=== PATIENT | female | born 1970 | race Caucasian/White ===

== ENCOUNTER → 2020-03-20 | Day surgery (SDC) | payer BC ==
[~2020-03-20] VITALS: Ht 152.4 cm; Wt 49.9 kg
[2020-03-20] VITALS (14 sets, daily range): BP systolic 111–139; BP diastolic 55–78
[~2020-03-20] MED LIST: Acetaminophen (Non formulary) 100 ML IV ONE; Atropine Sulfate 0.4mg/ml inj IVP PRN; BUTALB-ACETAMI1 EAC1 PO; D5 1/2NS 1,000 ML IV SCH; DiphenhydrAMINE 50mg/ml Inj IVP PRN; FROVA2.5 MG PO; Glycopyrrolate 0.2mg/ml 1ml Vial ONE; HYDROcodone/Acetamin 5/325 tab ORAL PRN; HYDROcodone/Acetamin 7.5/325 tab ORAL PRN; HYDROmorphone 1mg/ml Carpuject SUBQ PRN; Hydromorphone 0.5mg/0.5ml inj IVP PRN; Ketorolac 30mg Inj IV PRN; Ketorolac 30mg Inj ONE; LORazepam Inj 2mg/ml 1ml IV PRN; LR 1000ml 1,000 ML IVLG SCH; LR 1000ml ONE; Labetalol 5mg/ml 20ml vial IV PRN; Lidocaine 1% 10mg/ml/Epi 0.005mg/ml 30ml vial INJ ONE; Lidocaine 1% MPF 10mg/ml 5ml ONE; Lidocaine 1% Plain 30 ml INJ ONE; Meperidine 25mg/1ml Inj (FOR RIGORS ONLY) IV PRN; Metoclopramide 10mg/2ml Inj IVP PRN; Midazolam 2mg/2ml Inj IVP PRN; NS Irrig 4000ml IRRIG ONE; Neostigmine 1mg/ml 10ml Inj ONE; Rocuronium Bromide 50mg/5ml Inj IV ONE; Sodium Chloride 10ml vial INJ ONE; Sterile Water Irrig 1000ml IRRIG ONE; TROKENDI XR200 MG PO; Tylenol #3 tab (300mg/30mg) ORAL PRN; fentaNYL 100 mcg/2 mL IV PRN; oxyCODONE HCL/Acetaminophen 5/325mg ORAL PRN
--- NOTE | 2020-03-20 09:09 | Pre-Procedure Note/Attestation ---
Pre-Procedure Note/Attestation Complete Prior to Procedure Planned Procedure: not applicable Procedure Narrative: hysteroscopy dilation and curettage resection of lesion Indications for Procedure Pre-Operative Diagnosis: new intracavitary lesion/ probable submucous fibroid Attestation I attest that I discussed the nature of the procedure; its benefits; risks and complications; and alternatives (and the risks and benefits of such alternatives), prior to the procedure, with the patient (or the patient's legal renewals representative). I attest that, if there was a reasonable possibility of needing a blood transfusion, the patient (or the patient's legal renewals representative) was given the [facility] standardized written summary, pursuant to the [employer]obi Enriqueta Blood Safety Act ([place] Health and Safety Code # 1645, as amended). I attest that I re-evaluated the patient just prior to the surgery and that there has been no change in the patient's H&P, except as documented below: Flaquita Moreno MD Mar 20, 2020 09:09
--- NOTE | 2020-03-20 09:10 | Anethesia Preoperative Eval ---
Anesthesia Pre-op PMH/ROS General Date of Evaluation: Mar 20, 2020 Time of Evaluation: 09:54 Anesthesiologist: Jess ASA Score: ASA 2 Mallampati Score Class I : Soft palate, uvula, fauces, pillars visible Class II: Soft palate, uvula, fauces visible Class III: Soft palate, base of uvula visible Class IV: Only hard plate visible Mallampati Classification: Class I Surgeon: Josh Diagnosis: Abd Pain Surgical Procedure: D&C, Hysteroscopy, Fibroid Removal Anesthesia History: none Family History: no anesthesia problems Allergies: Coded Allergies: No Known Allergies (Unverified , 03/17/20) Medications: see eMAR Patient NPO?: Yes Past Medical History Gastrointestinal/Genitourinary: Reports: other - Fibroids Neurologic/Psychiatric: Reports: other - Migrane Anesthesia Pre-op Phys. Exam Physician Exam Last Vital Signs Date Time Temp Pulse Resp B/P (MAP) Pulse Ox O2 Delivery O2 Flow Rate FiO2 03/20/20 08:14 Room Air 03/20/20 08:06 97.7 81 18 125/72 100 Constitutional: NAD Neurologic: CN 2-12 intact Cardiovascular: RRR Respiratory: CTA Gastrointestinal: S/NT/ND Airway Exam Mallampati Score: Class I MO: full ROM: full Teeth: intact Anesthesia Pre-op A/P Risk Assessment & Plan Assessment: ASA 2 Plan: GA, SED, GlideScope Status Change Before Surgery: No Pre-Antibiotics Dru Gram Ancef IV Given Within 1 Hr of Incision: Yes Time Given: 10:16 Lm Mercado MD Mar 20, 2020 09:10
--- NOTE | 2020-03-20 10:30 | Immediate Post-Op Evaluation ---
Immediate Post-Op Evalulation Immediate Post-Op Evalulation Procedure: D&C, Hysteroscopy, Fibroid Removal Date of Evaluation: Mar 20, 2020 Time of Evaluation: 12:00 IV Fluids: 1000 LR Blood Products: 0 Estimated Blood Loss: 50 Urinary Output: 100 Blood Pressure Systolic: 139 Blood Pressure Diastolic: 78 Pulse Rate: 79 Respiratory Rate: 16 O2 Sat by Pulse Oximetry: 100 Temperature (Fahrenheit): 98 Pain Score (1-10): 2 Nausea: No Vomiting: No Complications 0 Patient Status: awake, reacts, patent, extubated, none Hydration Status: adequate Dru Gram Ancef IV Given Within 1 Hr of Incision: Yes Time Given: 10:16 Lm Mercado MD Mar 20, 2020 10:30
--- NOTE | 2020-03-20 11:36 | 48 Hour Post Anesthesia Eval ---
Post Anesthesia Evaluation Procedure: D&C, Hysteroscopy, Fibroid Removal Date of Evaluation: Mar 20, 2020 Time of Evaluation: 14:12 Blood Pressure Systolic: 128 0: 72 Pulse Rate: 75 Respiratory Rate: 18 Temperature (Fahrenheit): 98.2 O2 Sat by Pulse Oximetry: 100 Airway: patent Nausea: No Vomiting: No Pain Intensity: 2 Hydration Status: adequate Cardiopulmonary Status: Stable Mental Status/LOC: patient returned to baseline Follow-up Care/Observations: 0 Post-Anesthesia Complications: 0 Follow-up care needed: ready to discharge Lm Mercado MD Mar 20, 2020 11:36
--- NOTE | 2020-03-24 17:35 | Brief Operative Note ---
Immediate Post Operative Note Operative Note Pre-op Diagnosis: new intracavitary lesion/ probable submucous fibroid Procedure: TRUE - CLEAR myomectomy and polypectomy/ hysteroscopy Post-op Diagnosis: same Post-op Diagnosis: same as pre-op plus - polyp Surgeon: sirena Anesthesiologist: rolo Anesthesia: general Specimen: yes Complications: none Condition: stable Fluids: crystalloid iv:800cc and NS deficit from True Clear - 800cc Estimated Blood Loss: volume - 100cc Drains: none Implant(s) used?: No Flaquita Moreno MD Mar 24, 2020 17:35
--- NOTE | 2020-03-24 22:15 | Operative Note - Dictated ---
DATE OF OPERATION: 03/24/2020 PREOPERATIVE DIAGNOSIS: Submucosal fibroid. POSTOPERATIVE DIAGNOSIS: Submucosal fibroid. PROCEDURE: Hysteroscopy, TruClear myomectomy, and removal of polyp. ANESTHESIA: General endotracheal. SURGEON: Flaquita Moreno M.D. MAILING MACHINE ASSISTANT: None. COMPLICATIONS: None. ESTIMATED BLOOD LOSS: 100 cc FLUIDS: The patient was administered 800 mL of LR, and she had 800 mL normal saline deficit from the hysteroscopy. ANESTHESIOLOGIST: Lm Mercado M.D. PROCEDURE IN DETAIL: After ensuring informed consent, the patient was taken to the operating room, where general anesthesia was induced. The patient was sterilely prepped and draped and placed in dorsal lithotomy position with legs up in James stirrups. A weighted speculum was placed in the vagina. Cervix was dilated to an 8 Hegar dilator. Hysteroscope of the TruClear system was placed inside the uterine cavity. A large 4 cm fibroid was observed arising from the posterior uterine fundus. There was also low uterine segment polyp. Using the 7 mm TruClear device, myomectomy was started. Also, the polyp was likewise removed. TruClear was passed over the fibroid multiple times. In fact, it took about 40 minutes of cutting to remove the whole fibroid. However, the fibroid was removed completely and excellent hemostasis was assured. There was an 800 cc deficit at the end. The patient was awakened, extubated, and recovered in PACU in stable condition. The patient went home after she voided. Flaquita Moreno M.D. DR: WANDA JOB#: [id number] CC:
== END | disposition home or self-care (01) ==
LOC: SUR 07:21
DX: D25.0 Submucous leiomyoma of uterus (principal); N84.0 Polyp of corpus uteri; Z87.891 Personal history of nicotine dependence; Z79.899 Other long term (current) drug therapy
CPT/HCPCS: 58558; 58561; 94003; J0131; J0690; J1100; J1885; J2001; J2250; J2405; J2710; J3010; J7030; J7120; U0002; 94150; J2180